=== PATIENT | female | born 1940 | race Caucasian/White ===

== ENCOUNTER 2022-01-06 14:37 | Outpatient (CLI) | payer MEDICARE | END 2022-01-06 14:38 | disposition home or self-care (01) | LOC: CSHMAMMO 14:37 | PROVIDERS: ATTEND Family Medicine | DX: Z12.31 Encounter for screening mammogram for malignant neoplasm of breast (principal); Z80.3 Family history of malignant neoplasm of breast | CPT/HCPCS: 77063; 77067 ==

== ENCOUNTER 2023-01-28 13:17 | Outpatient (CLI) | payer MEDICARE | END 2023-01-28 13:18 | disposition home or self-care (01) | LOC: CSHMAMMO 13:17 | PROVIDERS: ATTEND Internal Medicine Endocrinology, Diabetes & Metabolism | DX: M81.8 Other osteoporosis without current pathological fracture (principal) | CPT/HCPCS: 77080 ==

== ENCOUNTER 2023-03-23 14:32 | Outpatient (CLI) | payer MEDICARE | END 2023-03-23 14:33 | disposition home or self-care (01) | LOC: CSHMAMMO 14:32 | PROVIDERS: ATTEND Student in an Organized Health Care Education/Training Program | DX: Z12.31 Encounter for screening mammogram for malignant neoplasm of breast (principal); Z80.3 Family history of malignant neoplasm of breast | CPT/HCPCS: 77063; 77067 ==

== ENCOUNTER 2023-04-25 22:03 | Inpatient (IN) | payer MEDICARE ==
[2023-04-25] MEDS ORDERED: Morphine 2 MG/ML VIAL ONE (22:49)
[2023-04-25] MEDS ORDERED: Ondansetron PF 4 MG/2 ML Vial ONE (22:49)
[2023-04-25 23:06] LABS: #Eosinphils 0.1 10x3/uL (0.0-0.5); #Monocytes 0.5 10x3/uL (0.0-1.1); %Basophils 0.4 % (0.0-2.0); %Eosinophils 1.7 % (0.0-6.0); %Lymphocytes 20.1 % (18.0-47.0); %Neutrophils 70.7 % (40.0-75.0); Hematocrit 42.1 % (34.9-44.5); Hemoglobin 14.2 g/dL (12.0-15.5); Mean Corpuscular HGB CONC 33.7 g/dL (32.0-36.0); Mean Corpuscular Hemoglobin 31.3 pg (27.0-33.0); Mean Corpuscular Volume 92.7 fl (81.6-98.3); Mean Platelet Volume 10.9 fl (7.4-10.4); Platelet Count 191 10x3/uL (150-450); RBC Distribution Width 14.6 % (11.5-14.5); Red Blood Cell (RBC) Count 4.54 10x6/uL (3.90-5.03); White Blood Cell (WBC) Count 7.1 10x3/uL (3.5-10.5)
[2023-04-25 23:18] LABS: Troponin I Less than 0.010 ng/mL (< 0.028)
[2023-04-25 23:41] LABS: ALT (SGPT) 19 U/L (8-55); AST (SGOT) 32 U/L (5-34); Albumin 4.1 g/dL (3.4-4.8); Alkaline Phosphatase 86 U/L (40-110); Anion Gap 18 mmol/L (10-20); BUN (Urea Nitrogen) 16 mg/dL (9.8-20.1); Bilirubin, Total 0.5 mg/dL (0.2-1.2); Calc. Creatinine Clearance 0 mL/min (70-130); Calcium 9.6 mg/dL (7.8-10.44); Carbon Dioxide 18 mmol/L (23-31); Chloride 106 mmol/L (98-107); Estimated GFR 76; Globulin 3.4 g/dL (2.4-3.5); Glucose 118 mg/dL (83-110); Lipase 12 U/L (8-78); Potassium 3.6 mmol/L (3.5-5.1); Protein, Total 7.5 g/dL (5.8-8.1); Sodium 138 mmol/L (136-145)
[2023-04-25] MEDS ORDERED: Promethazine HCl 12.5 MG in Sodium Chloride 0.9% 50 ML IVPB SCH (23:45)
[2023-04-26] MEDS ORDERED: Morphine 2 MG/ML VIAL ONE (00:19)
[2023-04-26] MEDS ORDERED: Senokot S 8.6-50 MG TAB PO PRN (01:21)
[2023-04-26] MEDS ORDERED: Acetaminophen 325 MG TAB PO PRN (01:21)
[2023-04-26] MEDS ORDERED: Ondansetron PF 4 MG/2 ML Vial IVP PRN (01:21)
[2023-04-26] MEDS ORDERED: Morphine 4 MG/ML VIAL SLOW IVP PRN (01:22)
[2023-04-26] MEDS ORDERED: hydrALAZINE 20 MG/ML VIAL SLOW IVP PRN (01:24)
[2023-04-26] MEDS ORDERED: Morphine 2 MG/ML VIAL SLOW IVP PRN (02:23)
[2023-04-26] MEDS: Pantoprazole 40 MG VIAL IVP SCH ×2 (02:45→16:10)
[2023-04-26] MEDS: Dextrose 5%-Lactated Ringers 1,000 ML IV SCH ×2 (02:46→16:11)
[2023-04-26 03:52] VITALS: BMI 24.4
[2023-04-26] MEDS ORDERED: Levothyroxine Sodium 25 MCG TAB PO SCH (06:00)
[2023-04-26 07:09] LABS: #Monocytes 0.4 10x3/uL (0.0-1.1); #Neutrophils 8.1 10x3/uL (1.5-8.4); %Basophils 0.3 % (0.0-2.0); %Lymphocytes 7.5 % (18.0-47.0); %Neutrophils 87.7 % (40.0-75.0); Hematocrit 42.6 % (34.9-44.5); Hemoglobin 13.9 g/dL (12.0-15.5); Mean Corpuscular HGB CONC 32.6 g/dL (32.0-36.0); Mean Corpuscular Hemoglobin 30.5 pg (27.0-33.0); Mean Corpuscular Volume 93.6 fl (81.6-98.3); Mean Platelet Volume 10.9 fl (7.4-10.4); Platelet Count 189 10x3/uL (150-450); RBC Distribution Width 14.9 % (11.5-14.5); Red Blood Cell (RBC) Count 4.55 10x6/uL (3.90-5.03); White Blood Cell (WBC) Count 9.3 10x3/uL (3.5-10.5)
[2023-04-26 07:53] LABS: ALT (SGPT) 18 U/L (8-55); AST (SGOT) 25 U/L (5-34); Alkaline Phosphatase 83 U/L (40-110); Anion Gap 16 mmol/L (10-20); BUN (Urea Nitrogen) 11 mg/dL (9.8-20.1); Bilirubin, Total 0.7 mg/dL (0.2-1.2); Calc. Creatinine Clearance 49 mL/min (70-130); Calcium 8.6 mg/dL (7.8-10.44); Carbon Dioxide 22 mmol/L (23-31); Chloride 105 mmol/L (98-107); Estimated GFR 76; Globulin 2.9 g/dL (2.4-3.5); Glucose 177 mg/dL (83-110); Potassium 3.9 mmol/L (3.5-5.1); Protein, Total 6.9 g/dL (5.8-8.1); Sodium 139 mmol/L (136-145)
[2023-04-26] MEDS ORDERED: Metoprolol Tartrate 25 MG TAB PO SCH (09:00)
[2023-04-26] MEDS ORDERED: Losartan 25 MG TAB PO SCH (09:00)
[2023-04-26] MEDS ORDERED: PROPOFOL 20 ML ONE (13:34)
[2023-04-26] MEDS ORDERED: Lidocaine 2% MPF 10 ML AMP (For Epidural Use) ONE (13:37)
[2023-04-26] MEDS ORDERED: IBANDRONATE SODIUM 150 MG PO SCH (17:30)
[2023-04-26] MEDS ORDERED: Sertraline 25 MG TAB PO SCH (21:00)
[2023-04-26] MEDS: traZODone HCl 50 MG TAB PO SCH (21:31)
[2023-04-26] MEDS: Simvastatin 10 MG TAB PO SCH (21:31)
[2023-04-26] MEDS: Sertraline 100 MG TAB PO SCH (21:31)
[2023-04-26] MEDS: Metoprolol Tartrate 50 MG TAB PO SCH (23:27)
[2023-04-26] MEDS: Losartan 50 MG TAB PO SCH (23:28)
[2023-04-27] MEDS: Dextrose 5%-Lactated Ringers 1,000 ML IV SCH ×2 (04:34→21:22)
[2023-04-27] MEDS ORDERED: Levothyroxine Sodium 75 MCG TAB PO SCH (06:00)
[2023-04-27] MEDS: Levothyroxine Sodium 75 MCG TAB PO SCH (06:49)
[2023-04-27] MEDS: Calcium Carbonate 600 MG + Vit D TAB PO SCH (08:55)
[2023-04-27] MEDS: Metoprolol Tartrate 25 MG TAB PO SCH (08:55)
[2023-04-27] MEDS: Losartan 50 MG TAB PO SCH ×2 (08:55→21:24)
[2023-04-27] MEDS: Fluticasone Propionate Nasal Spray 16 gm Bottle NASAL SCH (09:00)
[2023-04-27] MEDS ORDERED: Piperacillin/Tazobactam 3.375 GM in Sodium Chloride 0.9% 100 ML IVPB SCH (09:00)
[2023-04-27] MEDS: Famotidine 20 MG TAB PO SCH (09:01)
[2023-04-27] MEDS: Piperacillin/Tazobactam 3.375 GM in Sodium Chloride 0.9% 100 ML IVPB SCH ×2 (13:59→21:26)
[2023-04-27] MEDS: traZODone HCl 50 MG TAB PO SCH (21:24)
[2023-04-27] MEDS: Metoprolol Tartrate 50 MG TAB PO SCH (21:25)
[2023-04-27] MEDS: Sertraline 100 MG TAB PO SCH (21:25)
[2023-04-27] MEDS: Simvastatin 10 MG TAB PO SCH (21:25)
[2023-04-28] MEDS: Piperacillin/Tazobactam 3.375 GM in Sodium Chloride 0.9% 100 ML IVPB SCH ×3 (05:40→22:02)
[2023-04-28] MEDS: Levothyroxine Sodium 75 MCG TAB PO SCH (05:40)
[2023-04-28 05:41] LABS: #Eosinphils 0.2 10x3/uL (0.0-0.5); #Monocytes 0.5 10x3/uL (0.0-1.1); #Neutrophils 2.9 10x3/uL (1.5-8.4); %Basophils 0.8 % (0.0-2.0); %Eosinophils 4.4 % (0.0-6.0); %Lymphocytes 23.7 % (18.0-47.0); %Monocytes 9.8 % (0.0-10.0); %Neutrophils 61.1 % (40.0-75.0); Hemoglobin 11.3 g/dL (12.0-15.5); Mean Corpuscular HGB CONC 33.2 g/dL (32.0-36.0); Mean Corpuscular Hemoglobin 31.1 pg (27.0-33.0); Mean Corpuscular Volume 93.7 fl (81.6-98.3); Mean Platelet Volume 10.8 fl (7.4-10.4); Platelet Count 141 10x3/uL (150-450); RBC Distribution Width 14.9 % (11.5-14.5); Red Blood Cell (RBC) Count 3.63 10x6/uL (3.90-5.03); White Blood Cell (WBC) Count 4.8 10x3/uL (3.5-10.5)
[2023-04-28] MEDS: Dextrose 5%-Lactated Ringers 1,000 ML IV SCH ×2 (05:41→17:08)
[2023-04-28 05:48] LABS: Anion Gap 12 mmol/L (10-20); BUN (Urea Nitrogen) 6 mg/dL (9.8-20.1); CRP (Inflammatory) 2.95 mg/dL (= or < 0.5); Calc. Creatinine Clearance 57 mL/min (70-130); Calcium 8.2 mg/dL (7.8-10.44); Carbon Dioxide 21 mmol/L (23-31); Chloride 112 mmol/L (98-107); Estimated GFR 88; Glucose 93 mg/dL (83-110); Potassium 2.9 mmol/L (3.5-5.1); Sodium 142 mmol/L (136-145)
[2023-04-28] MEDS: Metoprolol Tartrate 25 MG TAB PO SCH (09:04)
[2023-04-28] MEDS: Losartan 50 MG TAB PO SCH ×2 (09:04→20:44)
[2023-04-28] MEDS: Fluticasone Propionate Nasal Spray 16 gm Bottle NASAL SCH (09:04)
[2023-04-28] MEDS: Calcium Carbonate 600 MG + Vit D TAB PO SCH (09:04)
[2023-04-28] MEDS: Famotidine 20 MG TAB PO SCH (09:04)
[2023-04-28] MEDS: Potassium Chloride 20 MEQ in Premix 1 BAG IVPB SCH ×2 (09:10→11:56)
[2023-04-28 16:32] LABS: Anion Gap 11 mmol/L (10-20); BUN (Urea Nitrogen) 8 mg/dL (9.8-20.1); Calc. Creatinine Clearance 50 mL/min (70-130); Calcium 9.1 mg/dL (7.8-10.44); Carbon Dioxide 25 mmol/L (23-31); Chloride 107 mmol/L (98-107); Estimated GFR 77; Glucose 99 mg/dL (83-110); Potassium 3.6 mmol/L (3.5-5.1); Sodium 139 mmol/L (136-145)
[2023-04-28] MEDS: Metoprolol Tartrate 50 MG TAB PO SCH (20:44)
[2023-04-28] MEDS: Sertraline 100 MG TAB PO SCH (20:45)
[2023-04-28] MEDS: traZODone HCl 50 MG TAB PO SCH (20:45)
[2023-04-28] MEDS: Simvastatin 10 MG TAB PO SCH (20:45)
[2023-04-29 04:06] VITALS: TEMP 98.2
[2023-04-29] MEDS: Dextrose 5%-Lactated Ringers 1,000 ML IV SCH (04:59)
[2023-04-29] MEDS: Levothyroxine Sodium 75 MCG TAB PO SCH (05:28)
[2023-04-29] MEDS: Piperacillin/Tazobactam 3.375 GM in Sodium Chloride 0.9% 100 ML IVPB SCH (05:28)
[2023-04-29 07:56] VITALS: BP 151/74
[2023-04-29] MEDS: Metoprolol Tartrate 25 MG TAB PO SCH (08:15)
[2023-04-29] MEDS: Fluticasone Propionate Nasal Spray 16 gm Bottle NASAL SCH (08:15)
[2023-04-29] MEDS: Famotidine 20 MG TAB PO SCH (08:15)
[2023-04-29] MEDS: Losartan 50 MG TAB PO SCH (08:15)
[2023-04-29] MEDS: Calcium Carbonate 600 MG + Vit D TAB PO SCH (08:17)
== END 2023-04-29 11:45 | disposition home or self-care (01) | DRG 392 ==
LOC: CSHERS 22:03 → CSHTELE 04-26 01:21
PROVIDERS: ADMIT Student in an Organized Health Care Education/Training Program; ATTEND Internal Medicine
PROC: 0DJ08ZZ Inspection of Upper Intestinal Tract, Via Natural or Artificial Opening Endoscopic (ICD-10-PCS; principal; 2023-04-26)
DX: K44.9 Diaphragmatic hernia without obstruction or gangrene (principal); K31.89 Other diseases of stomach and duodenum; Z88.2 Allergy status to sulfonamides; Z79.899 Other long term (current) drug therapy; E03.9 Hypothyroidism, unspecified; I10 Essential (primary) hypertension; I16.0 Hypertensive urgency; F41.9 Anxiety disorder, unspecified; E87.6 Hypokalemia; R50.9 Fever, unspecified; Z66 Do not resuscitate; E78.49 Other hyperlipidemia
CPT/HCPCS: 36415; 36416; 71045; 74177; 80048; 80053; 83690; 84484; 85025; 86140; 87040; 93005; 94760; 94762; 96374; 96375; 96376; C9113; J0360; J1650; J2272; J2405; J2543; J2550; J2704; J3480; J3490

== ENCOUNTER 2024-03-28 14:51 | Outpatient (CLI) | payer MEDICARE | END 2024-03-28 14:52 | disposition home or self-care (01) | LOC: CSHMAMMO 14:51 | PROVIDERS: ATTEND Student in an Organized Health Care Education/Training Program | DX: Z12.31 Encounter for screening mammogram for malignant neoplasm of breast (principal); Z80.3 Family history of malignant neoplasm of breast; Z91.89 Other specified personal risk factors, not elsewhere classified | CPT/HCPCS: 77063; 77067 ==

== ENCOUNTER 2025-02-02 15:17 | Outpatient (CLI) | payer MEDICARE | END 2025-02-02 15:18 | disposition home or self-care (01) | LOC: CSHMAMMO 15:17 | PROVIDERS: ATTEND Internal Medicine Endocrinology, Diabetes & Metabolism | DX: M81.8 Other osteoporosis without current pathological fracture (principal); M85.89 Other specified disorders of bone density and structure, multiple sites | CPT/HCPCS: 77080 ==